=== PATIENT | male | born 1970 | race Two or more races ===

== ENCOUNTER 2019-07-04 09:50 | Day surgery (SDC) | payer MEDICAID ==
[~2019-07-04] VITALS: Ht 170.2 cm; Wt 77.3 kg
[2019-07-04 10:00] VITALS: BP 138/83
[2019-07-04] MEDS ORDERED: LOSA25TA96 PO (10:07)
[2019-07-04] MEDS ORDERED: fentaNYL/PF 50MCG/1 ML 2ML syringe ONE (10:32)
[2019-07-04] MEDS ORDERED: MIDAZolam 5mg/5ml vial ONE (10:32)
[2019-07-04 11:02] VITALS: BP 121/71
[2019-07-04 11:12] VITALS: BP 113/71
[2019-07-04 11:22] VITALS: BP 111/68
== END 2019-07-04 11:32 | disposition home or self-care (01) ==
LOC: GI LAB 09:50
PROVIDERS: ATTEND Internal Medicine Gastroenterology
DX: Z12.11 Encounter for screening for malignant neoplasm of colon (principal); K64.8 Other hemorrhoids; Z79.899 Other long term (current) drug therapy
CPT/HCPCS: 45378; 99152; J2250; J3010; J7040; 99153; A4620